=== PATIENT | male | born 1955 | race Caucasian/White ===

== ENCOUNTER 2020-10-15 04:08 | Emergency (ER) | payer OTHER, SELFPAY ==
[2020-10-15] VITALS (9 sets, daily range): BP systolic 119–138; BP diastolic 70–82; PULSE 71–79; RESP 13–20; TEMP 36–36.3; O2SAT 98–100
--- NOTE | ~2020-10-15 | CT_ITS ---
EXAMINATION: CT facial bones wo con DATE: 10/15/2020 04:52 INDICATION: Head injury, facial pain TECHNIQUE: Computed tomography (CT) of the facial bones and maxillofacial region was performed withou t intravenous contrast. The dose-length product (DLP) was 501.06 mGy-cm. Automated exposure control a nd iterative reconstruction technique were employed. COMPARISON: None. FINDINGS: There are comminuted fractures of the nasal bones. The nasal septum is fractured and buckle d in its midportion. No additional facial fracture is identified. There is right periorbital and nasa l soft tissue swelling. The globes are intact. IMPRESSION: 1. Comminuted fractures of the nasal bones and fractured and buckled nasal septum. Reviewed, dictated and finalized at location A. IMPRESSION: 1. Comminuted fractures of the nasal bones and fractured and buckled nasal sept um.
--- NOTE | ~2020-10-15 | CT_ITS ---
EXAMINATION: CT brain wo con INDICATION: Head injury COMPARISON: None TECHNIQUE: Standard unenhanced head CT. The dose-length product (DLP) was 605.33 mGy-cm. The mA was a djusted according to patient size. Iterative reconstruction technique was employed. FINDINGS: There is no intracranial hemorrhage, acute infarction, or abnormal mass lesion. The ventric les are normal. There is no abnormal mass effect or midline shift. The escoto-white matter differentiat ion is normal. The basal cisterns are patent. The orbits are normal. The paranasal sinuses, mastoids and calvarium are normal. IMPRESSION: 1. No acute intracranial abnormality. Reviewed, dictated and finalized at location A.
--- NOTE | 2020-10-15 04:20 | PC.NURSE ---
Patient states he does have a history of passing out, due to my cardiomyopathy. Patient states he was at his son's house, whom he is visiting. Patient states he was downstairs to go to the bathroom. Patient states I passed out after turning the corner after getting up the stairs. Patient does have a contusion and small lac to his nose as well as obvious deformity. Patient has bleeding controlled on arrival. 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 Patient states he did have a few beers tonight and a big meal and that normally does it. Patient states he passing out is always up a hill or up stairs. Patient denies any cp or sob. Patient states only complaints is his face hurting. Patient states he does have a pacemaker. Patient denies any recent illness. 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
--- NOTE | 2020-10-15 04:21 | ED.HEATRA ---
HPI - Head Injury General Chief complaint: Head Injury Stated complaint: passed out and hit face Time Seen by Provider: 10/15/20 04:21 History of Present Illness HPI Narrative: 65 yo male presnets to the ED after a syncopal episode. He reports that he had eaten a large meal and had 1 beer earlier in the evening. He then awoke from sleep to go to the bathroom and after walking up the stairs he lost consciousness. He has a h/o HCM. He had frequent syncopal episodes in the past, but has not had problems recently. He has a [employer] pacemaker. When he lost consciousness he fell and struck his nose. He sustained a laceration and has an obvious deformity to the nose. He reports moderate pain. No chest pain SOB. Related Data Home Medications Medication Instructions Recorded Confirmed amlodipine 5 mg PO DAILY 10/15/20 venlafaxine [Effexor] mg DAILY 10/15/20 Allergies Allergy/AdvReac Type Severity Reaction Status Date / Time Penicillins AdvReac Rash Verified 10/15/20 04:11 Review of Systems Review of Systems: All systems reviewed & are unremarkable except as noted in HPI and below Constitutional: Constitutional: Denies chills and Denies fever(s) Eyes: Eyes: Reports no additional eye complaints Cardiovascular: Cardiovascular: Denies chest pain Respiratory: Respiratory: Denies dyspnea Gastrointestinal: Gastrointestinal: Denies abdominal pain and Denies nausea Neurologic: Reports as per HPI [facility] Past Medical History Medical History (Updated 10/15/20 @ 18:25 by Ricki Natarajan MD) HOCM (hypertrophic obstructive cardiomyopathy) Pacemaker Social History Social History (Updated 10/15/20 @ 18:25 by Ricki Natarajan MD) Smoking status: Never smoker Alcohol intake: current Alcohol use details: occasional Substance use: never Gender identity (if verbalized by the patient): Male Sexual Orientation (if Verbalized by the Patient): Straight or Heterosexual Exam Const: General: healthy appearing, no acute distress and alert Orientation/consciousness: patient oriented x3 HENMT: Other: clear deformity to nose. 2 cm laceration. No septal hematoma. Eyes: Conjunctivae: conjunctivae normal Pupils: Equal, round and reactive pupils present EOM: EOMs intact bilaterally Neck: Neck: normal visual inspection Chest: Chest palpation & inspection: normal inspection of the chest and no tenderness Resp: Effort & Inspection: normal respiratory effort Auscultation: clear to auscultation bilaterally Cardio: Rate: regular rate Rhythm: regular rhythm GI: GI Palp: Yes Soft to palpation and No Tenderness to palpation present (GI) Skin: General skin exam: normal color Neuro: General: patient oriented x3, moves all extremities, no meningeal signs and no focal motor deficits Speech: normal speech Gait exam (Neuro): Normal gait present Extrem: General: normal to inspection and no edema Psych: Appearance: grossly normal Mental Status: mental status grossly normal Affect: normal affect Attitude: cooperative Course Vital Signs Vital signs: Vital Signs Temperature 36.0 C L 10/15/20 04:14 Pulse Rate 75 10/15/20 04:14 Respiratory Rate 16 10/15/20 04:14 Blood Pressure 121/70 10/15/20 04:14 Pulse Oximetry 98 10/15/20 04:14 Temperature 36.3 C L 10/15/20 06:40 Pulse Rate 71 10/15/20 06:40 Respiratory Rate 20 10/15/20 06:40 Blood Pressure 119/70 10/15/20 06:40 Pulse Oximetry 98 10/15/20 06:40 MDM - Head Injury MDM Narrative Medical decision making narrative: He has known hypertrophic cardiomyopathy under treatment by a specialist and has been stable for quite some time. It sounds like there were a number of extrordinary factors which lead to this episode including travel, change in schedule, a large meal, consuming alcohol, and the exertional of climbing the stairs. Review of the pacemaker report does not show any events this evening. and is working appropriat
--- NOTE | 2020-10-15 04:39 | PC.NURSE ---
Patient taken to CT.
--- NOTE | 2020-10-15 04:40 | ECG_ITS ---
Measurements Intervals [place] Rate: 74 P: 44 VA: 169 QRS: 2 QRSD: 116 T: 104 QT: 382 QTc: 426 Interpretive Statements ATRIAL SENSE- ELECTRONIC VENTRICULAR PACEMAKER BASELINE ARTIFACT- I, II, III, AVR, AVF, V1, V3-V6 NO FURTHER INTERPRETATION IS POSSIBLE ATYPICAL ECG Electronically Signed On 10-15-2020 6:11:16 CDT by Nelson Stephens D.O.
[2020-10-15 04:51] LABS: Basophils Absolute Auto 0.1 K/mm3 (0.0-0.1); Eosinophils Absolute Auto 0.3 K/mm3 (0-0.3); Eosinophils Percent Auto 4.8 % (0-4.4); Hematocrit 44.9 % (42.0-52.0); Hemoglobin 15.3 g/dL (14.0-18.0); Immature Granulocyte Absolute 0.08 K/mm3 (0.00-0.031); Immature Granulocyte Percent A 1.4 % (0-0.5); Lymphocytes Absolute Auto 2.11 K/mm3 (0.9-3.2); Lymphocytes Percent Auto 35.8 % (18.3-44.2); Mean Corpuscular HGB Conc 34.1 g/dl (32-36); Mean Corpuscular Hemoglobin 32.9 pg (26-34); Mean Corpuscular Volume 96.6 fl (80-100); Mean Platelet Volume 9.3 fl (7.4-10.4); Monocytes Absolute Auto 0.7 K/mm3 (0.1-0.6); Monocytes Percent Auto 11.4 % (2.6-8.5); Neutrophils Absolute Auto 2.7 K/mm3 (1.3-6.7); Neutrophils Percent Auto 45.6 % (45.5-73.1); Platelet Count Result 197 k/mm3 (150-375); Red Blood Count 4.65 M/mm3 (4.6-6.20); Red Cell Distribution Width 12.7 % (11.5-14.5); White Blood Count 5.9 K/mm3 (4.5-10.0)
[2020-10-15 05:07] LABS: INR 0.9; Partial Thromboplastin Time 28.3 SECONDS (22.3-36.8); Prothrombin Time 12.8 Seconds (11.1-14.7)
[2020-10-15 05:10] LABS: Anion Gap 8 mmol/L (8-16); Blood Urea Nitrogen 15 mg/dL (9-20); Calcium 9.1 mg/dL (8.4-10.2); Carbon Dioxide 24 mmol/L (22-30); Chloride 108 mmol/L (98-107); Estimated CRCL calculation 53 ml/min; Estimated Glomerular Filt Rate > 60; Glucose 120 mg/dL (75-110); Potassium 3.9 mmol/L (3.4-5.0); Sodium 140 mmol/L (137-145)
--- NOTE | 2020-10-15 05:21 | PC.NURSE ---
Patient's pacemaker interrogated. Contacted [employer] and spoke with Rosa to have report faxed over.
[2020-10-15] MEDS: IBUPROFEN 600 MG TABLET PO (05:29)
[2020-10-15] MEDS: ACETAMINOPHEN 500 MG TABLET 1000 MG PO (05:29)
--- NOTE | 2020-10-15 05:48 | PC.NURSE ---
Contacted [employer] and spoke with Anna to have patient's report/review faxed over. She stated she will fax over the patient's report.
--- NOTE | 2020-10-15 05:59 | PC.NURSE ---
ERP in room suturing patient at this time.
== END 2020-10-15 06:42 | disposition home or self-care (01) ==
PROVIDERS: Emergency Provider Emergency Medicine
DX: S02.2XXA Fracture of nasal bones, initial encounter for closed fracture (principal); S01.21XA Laceration without foreign body of nose, initial encounter; I42.1 Obstructive hypertrophic cardiomyopathy; Z95.0 Presence of cardiac pacemaker; W18.39XA Other fall on same level, initial encounter
CPT/HCPCS: 12011; 36415; 70450; 70486; 80048; 85025; 85610; 85730; 93005; 99284; A9270